=== PATIENT | female | born 1935 | race Caucasian/White ===

== ENCOUNTER → 2020-07-23 | Outpatient (CLI) | payer OTHER, MEDICARE | LOC: KOH-I 15:50 | DX: M79.672 Pain in left foot (principal); M79.671 Pain in right foot; M25.572 Pain in left ankle and joints of left foot; M25.571 Pain in right ankle and joints of right foot; Z53.9 Procedure and treatment not carried out, unspecified reason ==

== ENCOUNTER 2021-09-27 16:47 | Emergency (ER) | payer OTHER, MEDICARE | END 2021-09-27 20:40 | disposition home or self-care (01) | LOC: ER1 16:47 | DX: M25.561 Pain in right knee (principal); M25.551 Pain in right hip; G89.29 Other chronic pain; M79.89 Other specified soft tissue disorders; Z88.5 Allergy status to narcotic agent | CPT/HCPCS: 73502; 73564; 85379; 99283 ==

== ENCOUNTER → 2021-09-29 | Outpatient (CLI) | payer OTHER, MEDICARE | LOC: EXRD 10:30 | DX: R22.41 Localized swelling, mass and lump, right lower limb (principal) | CPT/HCPCS: 93971 ==

== ENCOUNTER → 2021-09-30 | Outpatient (CLI) | payer OTHER, MEDICARE ==
[~2021-09-30] VITALS: Ht 162.6 cm; Wt 56.7 kg
[2021-09-30 15:46] LABS: HEMOGLOBIN 12.4 gm/dl (12.3-15.3); RED BLOOD COUNT 4.09 M/UL (4.00-5.10); WHITE BLOOD COUNT 4.8 K/UL (4.5-11.0)
[2021-09-30 16:07] LABS: BUN/CREATININE RATIO 28 (0-10)
== END ==
LOC: OPSV 14:32
PROVIDERS: Internal Medicine Geriatric Medicine
DX: L03.90 Cellulitis, unspecified (principal); R23.8 Other skin changes
CPT/HCPCS: 36415; 80053; 85027; 86140

== ENCOUNTER → 2021-10-06 | Outpatient (CLI) | payer OTHER, MEDICARE ==
[~2021-10-06] VITALS: Ht 162.6 cm; Wt 56.7 kg
== END ==
LOC: OPSV 12:00
DX: L03.115 Cellulitis of right lower limb (principal); L03.116 Cellulitis of left lower limb; R23.8 Other skin changes
CPT/HCPCS: G0463

== ENCOUNTER → 2021-10-09 | Outpatient (CLI) | payer OTHER, MEDICARE ==
[~2021-10-09] VITALS: Ht 162.6 cm; Wt 56.7 kg
== END ==
LOC: OPSV 12:00
DX: R23.8 Other skin changes (principal); L03.90 Cellulitis, unspecified
CPT/HCPCS: G0463

== ENCOUNTER → 2021-11-03 | Outpatient (CLI) | payer MEDICARE | LOC: KOH-I 12:08 | DX: S32.89XA Fracture of other parts of pelvis, initial encounter for closed fracture (principal); X58.XXXA Exposure to other specified factors, initial encounter | CPT/HCPCS: 72192 ==

== ENCOUNTER → 2021-12-18 | Outpatient (CLI) | payer MEDICARE | LOC: MRI 12:40 | DX: M16.11 Unilateral primary osteoarthritis, right hip (principal) | CPT/HCPCS: 72195; 73721 ==